=== PATIENT | female | born 1995 | race American Indian/Alaskan Native ===

== ENCOUNTER 2017-02-15 12:26 | Emergency (ER) | payer OTHER ==
[2017-02-15] MEDS ORDERED: NACL 0.9% 1000 ML 1,000 ML IV ONE (14:38)
[2017-02-15 15:09] LABS: Basophils % (Auto) 0.3 % (0.0-1.8); Hematocrit 39.5 % (30.3-42.9); Hemoglobin 12.8 gm/dl (10.1-14.3); Mean Corpuscular HGB Conc 32 % (30-34); Mean Corpuscular Hemoglobin 29 pg (28-32); Mean Corpuscular Volume 88 fl (79-97); Platelet Count 183 K/mm3 (140-440); Red Cell Distribution Width 14.9 % (13.2-15.2); White Blood Count 6.1 K/mm3 (4.5-11.0)
[2017-02-15 15:19] LABS: INR 1.17 (0.87-1.13)
[2017-02-15 15:22] LABS: Alanine Aminotransferase 11 units/L (7-56); Alkaline Phosphatase 55 units/L (35-129); Anion Gap 21 mmol/L; Bilirubin,Total 0.9 mg/dL (0.1-1.2); Blood Urea Nitrogen 7 mg/dL (7-17); Calcium 8.9 mg/dL (8.4-10.2); Carbon Dioxide 19 mmol/L (22-30); Chloride 98.8 mmol/L (98-107); Glucose 86 mg/dL (65-100); Lipase 36 units/L (13-60); Potassium 4.1 mmol/L (3.6-5.0); Sodium 135 mmol/L (137-145); Total Protein 7.9 g/dL (6.3-8.2)
[2017-02-16] MEDS ORDERED: NACL 0.9% 1000 ML 1,000 ML IV ONE (02:02)
[2017-02-16] MEDS ORDERED: TYLENOL PO ONE (02:03)
--- NOTE | 2017-02-16 02:16 | Emergency Department Report ---
ED GI Bleed HPI - General Chief complaint: GI Bleed Stated complaint: DIARRHEA W/BLOOD IN STOOL Time Seen by Provider: 02/16/17 01:59 Source: patient Mode of arrival: Ambulatory Limitations: No Limitations - History of Present Illness Initial comments: She is a 21-year-old female with no past medical history presenting to the ER with intermittent crampy abdominal pain, diarrhea, bloody stool. Patient reports she had greater than 10 bowel movements today and had blood on the toilet tissue and in the toilet ball. No prior episodes of GI bleed, instrumentation, or surgery. Otherwise no fevers, chills, NV, CP, SOB, trauma, travel abroad, camping, drinking from murphy or streams, recent abx use, or sick contacts. MD complaint: blood on toilet paper, blood streaked stool Location: diffuse Radiation: none Severity scale (0 -10): 0 Quality: cramping Consistency: intermittent Improves with: bowel movement - Related Data Allergies Allergy/AdvReac Type Severity Reaction Status Date / Time No Known Allergies Allergy Verified 07/24/16 10:10 ED Review of Systems ROS: Stated complaint: DIARRHEA W/BLOOD IN STOOL Other details as noted in HPI Comment: All other systems reviewed and negative ED Past Medical Hx - Past Medical History Previous Medical History?: No - Social History Smoking Status: Never Smoker Substance Use Type: None ED Physical Exam - General Limitations: No Limitations General appearance: alert, in no apparent distress - Head Head exam: Present: atraumatic, normocephalic - Eye Eye exam: Present: normal appearance - ENT ENT exam: Present: mucous membranes moist - Neck Neck exam: Present: normal inspection - Respiratory Respiratory exam: Present: normal lung sounds bilaterally. Absent: respiratory distress - Cardiovascular Cardiovascular Exam: Present: regular rate, normal rhythm. Absent: systolic murmur, diastolic murmur, rubs, gallop - GI/Abdominal GI/Abdominal exam: Present: soft, normal bowel sounds - Rectal Rectal exam: Present: normal inspection, normal rectal tone, heme (-) stool - Extremities Exam Extremities exam: Present: normal inspection - Back Exam Back exam: Present: normal inspection - Neurological Exam Neurological exam: Present: alert, oriented X3 - Psychiatric Psychiatric exam: Present: normal affect, normal mood - Skin Skin exam: Present: warm, dry, intact, normal color. Absent: rash ED Course Vital Signs 02/15/17 02/15/17 02/16/17 14:35 23:16 01:45 Temperature 99.0 F 98.8 F Pulse Rate 109 H 110 H 88 Respiratory 16 18 16 Rate Blood Pressure 119/82 130/88 Blood Pressure 110/72 [Left] O2 Sat by Pulse 100 99 99 Oximetry ED Medical Decision Making - Lab Data Result diagrams: 02/15/17 14:38 02/15/17 14:38 - EKG Data -: EKG Interpreted by Me (01:53) EKG shows normal: sinus rhythm, axis (normal axis), intervals (Qtc:454ms), ST-T waves (CARON, no STEMI) Rate: normal (88 bpm) - EKG Data When compared to previous EKG there are: no significant change - Medical Decision Making Results discussed with patient. Advised to follow up with PMD. Instructed to return to the ED if she becomes dizzy, lightheaded, SOB, or having chest pain Critical care attestation.: If time is entered above; I have spent that time in minutes in the direct care of this critically ill patient, excluding procedure time. ED Disposition Clinical Impression: Diarrhea, Bloody stool Disposition: DISCHARGED TO HOME OR SELFCARE Is pt being admited?: No Condition: Stable Instructions: Acute Diarrhea (ED) Referrals: PRIMARY CARE, [Primary Care Provider] - 3-5 Days Forms: Accompanied Note
[2017-02-16 04:27] VITALS: BP 112/68
== END 2017-02-16 04:27 | disposition home or self-care (01) ==
LOC: ED 12:26
DX: K92.1 Melena (principal); R19.7 Diarrhea, unspecified
CPT/HCPCS: 36415; 80053; 81025; 82271; 83690; 85025; 85610; 85730; 86850; 86900; 86901; 93005; 93010; 96360; 99284; J7030